=== PATIENT | female | born 1940 | race Two or more races ===

== ENCOUNTER → 2016-08-24 | Day surgery (SDC) | payer MEDICARE ==
[~2016-08-24] MED LIST: AMLO5TAB2 PO; CALC-450 PO; CHOL20003 PO; HYDR-2666 PO; HYDR200T PO; HYDROmorphone 2 MG/ML VIAL IV PRN; IV RINGERS,LACTATED 1000ML 1,000 ML IV SCH; LEVO50TA5 PO; LIDOCAINE 1% 1 ML SYRINGE. ID PRN; LIDOCAINE 2% PF Vial for OR 5 ML VIAL. ONE; MORPHINE SULFATE 2 MG/ML DISP.SYRIN. IV PRN; MULT1TAB97 PO; OMEG1CAP6 PO; OMEP20CA9 PO; ONDANSETRON PF 4 MG/2 ML VIAL. IV PRN; PROCHLORPERAZINE 10 MG/2 ML VIAL. IV PRN; PROPOFOL 20 ML IV ONE; SIMV10TA3 PO; TRAM1TAB4 PO; TRAM50TA PO; fentaNYL PF VIAL 100 MCG/2 ML VIAL IV PRN
[2016-08-24 08:16] VITALS: BP 102/83
--- NOTE | 2016-08-28 10:28 | PATHOLOGY ---
PATHOLOGY REPORT * * * * * * * * FINAL DIAGNOSIS: Esophagus, distal, biopsy: - Superficial fragments of unremarkable squamous epithelium. - No columnar epithelium identified. (JULIENNE:; d/t: 08/27/16) REPORT ELECTRONICALLY SIGNED BY: Lina Valdovinos M.D. DATE/TIME: 08/28/2016 10:27 * * * * * * * * GROSS PATHOLOGY: Received in formalin labeled "[place], distal esophageal biopsy rule out Antonio's," are 4 segments of steinberg soft tissue measuring 0.6 x 0.5 x 0.2 cm in aggregate dimensions and ranging from 0.2 to 0.3 cm in maximum dimension. The specimen is submitted entirely in cassette A1. (KAH; 08/25/2016) INITIAL CPT CODE(S): A; 79057 Professional services performed by [facility] [place] [address] Technical services performed by [facility] at [address] [place] [address], [facility] [address] [address]. SPECIMEN(S) RECEIVED: A.Distal esophageal biopsy, r/o Antonio's CLINICAL HISTORY: Epigastric pain, change in bowel habits PATIENT: [place] /AGE: 104/22/1940 (Age: 76) PATIENT #: [id number] ALT CASE #: SPECIMEN COLLECTION DATE: 08/24/2016 SPECIMEN RECEIVED DATE: 08/24/2016 [facility] - [address] [place] [address] - PHONE: [phone] * * * END OF REPORT * * *
== END | disposition home or self-care (01) ==
LOC: ENDOS 06:11
PROVIDERS: ATTEND Internal Medicine Gastroenterology
DX: K64.0 First degree hemorrhoids (principal); K21.0 Gastro-esophageal reflux disease with esophagitis; K31.9 Disease of stomach and duodenum, unspecified; E78.00 Pure hypercholesterolemia, unspecified; I10 Essential (primary) hypertension; E03.9 Hypothyroidism, unspecified; Z83.3 Family history of diabetes mellitus; Z82.49 Family history of ischemic heart disease and other diseases of the circulatory system; Z88.6 Allergy status to analgesic agent
CPT/HCPCS: 43239; 45378; J2704; 88305

== ENCOUNTER → 2016-09-04 | Outpatient (CLI) | payer MEDICARE ==
[2016-08-24 08:16] VITALS: BP 102/83
[~2016-09-04] VITALS: Ht 154.9 cm; Wt 65.8 kg
[~2016-09-04] MED LIST changes: -HYDROmorphone 2 MG/ML VIAL IV PRN; -IV RINGERS,LACTATED 1000ML 1,000 ML IV SCH; -LIDOCAINE 1% 1 ML SYRINGE. ID PRN; -LIDOCAINE 2% PF Vial for OR 5 ML VIAL. ONE; -MORPHINE SULFATE 2 MG/ML DISP.SYRIN. IV PRN; -ONDANSETRON PF 4 MG/2 ML VIAL. IV PRN; -PROCHLORPERAZINE 10 MG/2 ML VIAL. IV PRN; -PROPOFOL 20 ML IV ONE; +SINCALIDE 1.32 MCG in IV NORMAL SALINE 50ML 30 ML IV ONE; -fentaNYL PF VIAL 100 MCG/2 ML VIAL IV PRN
--- NOTE | 2016-09-04 08:21 | RAD ---
Indication epigastric pain. Images were obtained targeted to the right upper quadrant. The visualized inferior vena cava appears normal. There is some increased attenuation of the ultrasound beam by the liver compatible with fatty infiltration. A focal mass lesion in the visualized liver is not seen. There is no cholelithiasis. There is, however, mild gallbladder wall thickening. The gallbladder wall measures approximately 4 mm. The etiology is unclear. This may reflect inherent gallbladder disease. Diffuse hepatic disease is often a cause of gallbladder wall thickening. Clinical correlation advised. The common bile duct diameter of approximately 7 mm is within normal limits given the patient's age. The right kidney appears unremarkable. The visualized pancreas appears normal although much of the pancreas is obscured. IMPRESSION: Fatty infiltration of the liver. Gallbladder wall thickening. The etiology is unclear. Inherent gallbladder disease or hepatic disease should be considered. Common bile duct diameter at the upper limits of normal in size
--- NOTE | 2016-09-04 12:23 | RAD ---
Indication epigastric pain for 3 months. 5 mCi of technetium labeled Choletec was administered. 1.3 mcg of CCK was diluted in saline and administered over several minutes. Following the CCK infusion a gallbladder ejection fraction calculation was made. There is normal uptake of the radiopharmaceutical in the liver. Activity is seen early in the biliary system small bowel and gallbladder. Following the Kinevac administration the estimated gallbladder ejection fraction is 80% which is normal. IMPRESSION: Normal study
== END | disposition home or self-care (01) ==
LOC: US 07:33
PROVIDERS: ATTEND Internal Medicine Gastroenterology
DX: R10.13 Epigastric pain (principal)
CPT/HCPCS: 76705; 78226; 96374; 96375; A9537; J2805

== ENCOUNTER → 2017-01-07 | Outpatient (CLI) | payer MEDICARE ==
[2016-12-27 11:00] VITALS: BP 111/50
[~2017-01-07] MED LIST changes: -CHOL20003 PO; +CHOL20009 PO; -HYDR-2666 PO; +HYDR-2758 PO; -SINCALIDE 1.32 MCG in IV NORMAL SALINE 50ML 30 ML IV ONE
== END | disposition home or self-care (01) ==
LOC: RT 19:02
PROVIDERS: ATTEND Internal Medicine Pulmonary Disease
DX: G47.33 Obstructive sleep apnea (adult) (pediatric) (principal)
CPT/HCPCS: 95810

== ENCOUNTER → 2018-02-27 | Outpatient (CLI) | payer MEDICARE ==
[2016-12-27 11:00] VITALS: BP 111/50
[~2018-02-27] MED LIST changes: -AMLO5TAB2 PO; +AMLO5TAB7 PO; -HYDR200T PO; +HYDR200T71 PO
--- NOTE | 2018-02-28 08:53 | RAD ---
DATE: 02/27/2018 2:00 AM EXAM: DIGITAL SCREEN BILAT W/CAD HISTORY: routine screening evaluation. COMPARISON: 02/18/2017, 04/25/2015, 03/18/2015 Bilateral full field craniocaudal and mediolateral oblique images were obtained using digital technique. This study was interpreted with the benefit of Computerized Aided Detection (CAD ). Breast Density: The breast parenchyma shows scattered fibroglandular densities. Breast parenchyma level B. FINDINGS: Benign calcifications are present. The parenchymal pattern appears stable. No suspicious masses, microcalcifications or architectural distortion is present to suggest malignancy in either breast. The visualized axillae are unremarkable. IMPRESSION: No mammographic evidence of malignancy. BI-RADS CATEGORY: 2 BENIGN FINDING(S) RECOMMENDED FOLLOW-UP: 12M 12 MONTH FOLLOW-UP Annual screening mammography is recommended, unless clinically indicated sooner based on symptoms or change in physical exam. PQRS compliance statement: Patient information was entered into a reminder system with a target due date 02/28/2019 for the next mammogram. Mammography is a sensitive method for finding small breast cancers, but it does not detect them all and is not a substitute for careful clinical examination. A negative mammogram does not negate a clinically suspicious finding and should not result in delay in biopsying a clinically suspicious abnormality. "Our facility is accredited by the [employer] Mammography Program." MTDD
== END | disposition home or self-care (01) ==
LOC: MAMMO 10:20
PROVIDERS: ATTEND Internal Medicine
DX: Z12.31 Encounter for screening mammogram for malignant neoplasm of breast (principal)
CPT/HCPCS: 77067

== ENCOUNTER → 2018-06-25 | Outpatient (CLI) | payer MEDICARE ==
[2016-12-27 11:00] VITALS: BP 111/50
[~2018-06-25] MED LIST changes: +AMLO5TAB10 PO; -AMLO5TAB7 PO; -HYDR-2758 PO; +HYDR-2761 PO; +OMEP20CA10 PO; -OMEP20CA9 PO; +ZOLPIDEM 5 MG TABLET. PO ONE
--- NOTE | 2018-06-26 14:58 | SLEEP ---
DATE OF STUDY: 06/25/2018 ATTENDING PHYSICIAN: Dr. Terry Stoner. REFERRING PHYSICIAN: Dr. Barker. The patient is a 78-year-old who weighs 143 pounds with a BMI of 25. The patient's Lamy score was 11. The patient had a previous sleep study, which showed moderate DOUGLAS with worsening during supine and REM sleep. Total AHI was 18 per hour with a supine AHI of 29 per hour and REM AHI of 73 per hour. The patient has lost weight since her last sleep study. Another study was requested for further evaluation. During the night of study, the patient spent 418 minutes in bed and slept for 327 minutes with a sleep efficiency of 92%. Sleep latency was 92 minutes with a REM latency of 117 minutes. Overall, sleep architecture showed normal stage 1 sleep, increased stage 2 sleep, normal slow wave and reduced REM sleep. During the night of study, the patient had no obstructive, mixed or central apneas. There were 33 hypopneas. The patient's apnea-hypopnea index was only 6 per hour, supine index 8 per hour and a REM index of 45 per hour. EKG monitoring revealed an average heart rate of 77 beats per minute, no sustained arrhythmias observed. PLMS were seen at index of 79 per hour and 23 per hour caused EEG arousals. Nocturnal oximetry study revealed a mean oxygen saturation of 96% with the lowest of 80%. 86% of time oxygen saturation remained between 80% and 89%. There was a sustained pattern of hypoxia suggesting hypoventilation. Due to low AHI, the patient did not meet the split night criteria for CPAP initiation. IMPRESSION: 1. Mild sleep apnea-hypopnea syndrome at an AHI of 6 per hour with worsening obstructive sleep apnea during REM sleep with an AHI of 45 per hour. The patient's overall sleep apnea severity has improved with weight loss since her previous sleep study in 2017. 2. Severe PLMS. 3. Sustained pattern of nocturnal hypoxia suggesting hypoventilation. RECOMMENDATIONS: 1. Further weight loss is advised. However, if the patient is clinically symptomatic and has other comorbid conditions, then I would recommend treating the patient's sleep apnea with either oral appliance or a trial of CPAP titration. 2. Once the patient is optimally treated, then follow up in 4-6 weeks to assess compliance and to document clinical improvement. 3. Avoid COAL TRAMMER depressants. 4. Caution regarding driving until symptoms of sleep apnea resolve with the above recommendation. 5. The patient should also be further evaluated for symptoms of restless legs during the day and if present, it can be treated with dopaminergic agonist agents. KRISSY ROSENBERG MD DR: NIRU/aissatou JOB#: [id number] / [id number] TERRY Toure MD, SABATO MD MTDD
== END | disposition home or self-care (01) ==
LOC: SLPLAB 19:03
PROVIDERS: ATTEND Internal Medicine Pulmonary Disease
DX: G47.33 Obstructive sleep apnea (adult) (pediatric) (principal); Z88.8 Allergy status to other drugs, medicaments and biological substances
CPT/HCPCS: 95810

== ENCOUNTER → 2019-03-03 | Outpatient (CLI) | payer MEDICARE ==
[2016-12-27 11:00] VITALS: BP 111/50
[~2019-03-03] MED LIST changes: +CONTRAST GIVEN. MC PRN; +IOHEXOL 240 MG/ML 50ML VIAL. PO ONE; +SIMV10TA15 PO; -SIMV10TA3 PO; -ZOLPIDEM 5 MG TABLET. PO ONE
--- NOTE | 2019-03-03 16:05 | RAD ---
EXAM: Abdomen and pelvis CT without intravenous contrast. HISTORY: Pain. TECHNIQUE: Computed tomographic images of the abdomen and pelvis were obtained without intravenous contrast. Multiplanar reformatting was performed. *One or more of the following individualized dose reduction techniques were utilized for this examination: 1. Automated exposure control. 2. Adjustment of the mA and/or kV according to patient size. 3. Use of iterative reconstruction technique. COMPARISON: None. FINDINGS: Evaluation of the lower thorax demonstrates a few tiny groundglass and nodular opacities within the right lower lobe, likely postinfectious or postinflammatory. The largest of these measures 2 mm. There is no consolidation or pleural effusion. There is lingular and right middle lobe atelectasis or scarring. There is basilar and posterior dependent atelectasis. There is a tiny hiatal hernia. No hepatic lesion is seen. The gallbladder is surgically absent. The pancreas, spleen and adrenal glands are unremarkable. There is left greater than right renal malrotation, an incidental finding. There is no evidence of nephrolithiasis or hydronephrosis. There is renal cortical lobulation. The appendix is dilated to a caliber of 9 mm. However, there is no periappendiceal stranding to suggest acute appendicitis. There is moderate colonic stool. There is no evidence of bowel obstruction. The bladder is nearly empty. There is aortobiiliac atherosclerosis. There is no lymphadenopathy. There are degenerative changes involving the spine and both hips. There is grade 1 anterolisthesis of L5 on S1. IMPRESSION: 1. Dilated appendix, measuring 9 mm in caliber. This may be physiologic given the absence of secondary findings to suggest appendicitis. 2. Moderate colonic stool. 3. Bilateral renal malrotation, an incidental finding. There is renal cortical lobulation which may be physiologic or due to scarring. 4. Tiny groundglass and nodular opacities within the right lower lobe, likely postinfectious or postinflammatory. The largest of these measures 2 mm. 5. Tiny hiatal hernia. Electronically signed by: Bess Mahan MD (03/03/2019 4:02 PM) [place] [id number]
--- NOTE | 2019-03-04 12:44 | RAD ---
DATE: 03/03/2019. EXAM: DIGITAL SCREEN BILAT W/CAD. HISTORY: Routine mammographic screening. COMPARISON: 02/27/2018. This study was interpreted with the benefit of Computerized Aided Detection (CAD). FINDINGS: Breast Density: SCATTERED The breast parenchyma shows scattered fibroglandular densities. Breast parenchyma level B.. Scattered calcifications are benign. The parenchymal pattern is stable. There are no suspicious masses, microcalcifications or architectural distortion. BI-RADS CATEGORY: 2 BENIGN FINDING(S). RECOMMENDED FOLLOW-UP: 12M 12 MONTH FOLLOW-UP. PQRS compliance statement: Patient information was entered into a reminder system with a target due date 03/03/2020 for the next mammogram. Mammography is a sensitive method for finding small breast cancers, but it does not detect them all and is not a substitute for careful clinical examination. A negative mammogram does not negate a clinically suspicious finding and should not result in delay in biopsying a clinically suspicious abnormality. "Our facility is accredited by the [employer] Mammography Program."
== END | disposition home or self-care (01) ==
LOC: CT 13:39
PROVIDERS: ATTEND Internal Medicine
DX: Z12.31 Encounter for screening mammogram for malignant neoplasm of breast (principal); N64.89 Other specified disorders of breast; K44.9 Diaphragmatic hernia without obstruction or gangrene; J98.11 Atelectasis; Q63.1 Lobulated, fused and horseshoe kidney; Q63.2 Ectopic kidney; I70.8 Atherosclerosis of other arteries
CPT/HCPCS: 74176; 77067; Q9966

== ENCOUNTER → 2020-03-22 | Outpatient (CLI) | payer MEDICARE ==
[2016-12-27 11:00] VITALS: BP 111/50
[~2020-03-22] MED LIST changes: +AMLO-186 PO; -AMLO5TAB10 PO; -CONTRAST GIVEN. MC PRN; -IOHEXOL 240 MG/ML 50ML VIAL. PO ONE; -OMEP20CA10 PO; +OMEP20CA16 PO
--- NOTE | 2020-03-22 15:33 | RAD ---
BILATERAL SCREENING MAMMOGRAM, 3-D History: Routine screening. Comparison: 03/03/2019, 02/27/2018, 02/18/2017, 03/18/2015. Technique: MLO and CC digital tomosynthesis (3D) images obtained. Radiologist reviewed these images on dedicated workstation. Findings: Breast Tissue Density B : There are scattered areas of fibroglandular density. There are no dominant masses, suspicious microcalcifications, or architectural distortion. IMPRESSION: No mammographic evidence of malignancy. Recommend routine screening. BI-RADS category 1: Negative. The images were reviewed with computer-aided detection. Patient information is entered into reminder system with a target due date for the next screening mammogram. Mammography is the most sensitive method for finding small breast cancers, but it does not detect them all and is not a substitute for careful clinical examination. A negative mammogram does not negate a clinically suspicious finding and should not result in delay in biopsying a clinically suspicious abnormality. "Our facility is accredited by the [employer] Mammography Program." Electronically signed by: Haroon Valdes MD (03/22/2020 3:30 PM) [id number]
== END ==
LOC: MAMMO 13:02
PROVIDERS: ATTEND Internal Medicine
DX: Z12.31 Encounter for screening mammogram for malignant neoplasm of breast (principal)
CPT/HCPCS: 77063; 77067

== ENCOUNTER → 2020-08-09 | Outpatient (CLI) | payer MEDICARE ==
[2016-12-27 11:00] VITALS: BP 111/50
[~2020-08-09] MED LIST changes: +IOHEXOL 240 MG/ML 50ML VIAL. PO ONE
--- NOTE | 2020-08-10 10:17 | RAD ---
EXAM: Abdomen and pelvis CT with intravenous contrast. HISTORY: Right lower quadrant pain. TECHNIQUE: Computed tomographic images of the abdomen and pelvis were obtained following the administ ration of intravenous contrast. Multiplanar reformatting was performed. *One or more of the following individualized dose reduction techniques were utilized for this examina tion: 1. Automated exposure control. 2. Adjustment of the mA and/or kV according to patient size. 3. Use of iterative reconstruction technique. COMPARISON: 03/03/2019. FINDINGS: Evaluation of the lower thorax demonstrates posterior basilar atelectasis. There is a stabl e suspected fluid-filled distal esophageal diverticulum. No hepatic lesion is seen. The gallbladder i s surgically absent. The pancreas, spleen and adrenal glands are unremarkable. There is a malrotated left kidney. 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 There are prominent bilateral renal pelves. There is no kianna h ydronephrosis. There is a dilated appendix measuring 9 mm in caliber. This is stable compared to the prior study. Th ere is no surrounding inflammatory stranding to suggest acute appendicitis. There is no evidence of b owel obstruction. There is moderate colonic stool. There are distal colonic diverticula. The bladder is unremarkable. There is degenerative change throughout the spine. There is lumbar hyperlordosis, scoliosis and there is grade 1 anterolisthesis of L5 on S1. There is no acute osseous finding. There are few benign bone islands. There is degenerative change involving both hips. IMPRESSION: 1. Dilated appendix, measuring 9 mm in caliber. This is stable compared to the prior study and there are no surrounding inflammatory changes. This does not favor acute appendicitis. 2. Moderate colonic stool and a few distal colonic diverticula. 3. 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 There are stable prominent renal pelves. No hydronephrosis is seen. Electronically signed by: Bess Mahan MD (08/10/2020 10:15 AM) [id number]
== END ==
LOC: CT 12:49
PROVIDERS: ATTEND Internal Medicine
DX: K57.30 Diverticulosis of large intestine without perforation or abscess without bleeding (principal); N26.1 Atrophy of kidney (terminal)
CPT/HCPCS: 74176

== ENCOUNTER → 2021-06-20 | Outpatient (CLI) | payer MEDICARE ==
[2016-12-27 11:00] VITALS: BP 111/50
[~2021-06-20] MED LIST changes: -IOHEXOL 240 MG/ML 50ML VIAL. PO ONE
--- NOTE | 2021-06-20 12:01 | RAD ---
Bilateral digital screening 2-D and 3-D (digital breast tomosynthesis) mammogram: Reason for examination: Routine screening. Comparison: Mammograms from 03/22/2020, 03/03/2019, 02/27/2018. Interpretation was made with the benefit of CAD. FINDINGS: Breast density: Category B. There are scattered areas of fibroglandular density. No suspicious breast mass, malignant appearing calcifications, or architectural distortion is seen. IMPRESSION: No evidence of malignancy. Assessment: BI-RADS 1. Negative. Recommendation: Routine screening mammograms. The patient will receive a letter with the results in the mail. Patient information will be entered i nto the mammography reminder system with a target recall date for the next mammogram. A reminder david er will be generated. Electronically signed by: Nidia Hollins MD (06/20/2021 11:58 AM) [id number]
== END ==
LOC: MAMMO 10:00
PROVIDERS: ATTEND Internal Medicine
DX: Z12.31 Encounter for screening mammogram for malignant neoplasm of breast (principal)
CPT/HCPCS: 77063; 77067